=== PATIENT | female | born 1980 | race Caucasian/White ===

== ENCOUNTER → 2019-04-23 07:24 | Outpatient (CLI) | payer OTHER, SELFPAY ==
[2019-04-23 09:34] LABS: Free T3, Triiodothyronine Free 4.31 pg/mL (2.77-5.27); Free T4, Direct Thyroxine 0.87 ng/dL (0.78-2.19)
[2019-04-23 09:38] LABS: Progesterone, Total 8.79 ng/mL
[2019-04-23 09:48] LABS: Thyroid Stimulating Hormone 0.02 uIU/mL (0.47-4.68)
[2019-04-27 10:40] LABS: Testosterone Free 3.3 pg/mL (0.1-6.4); Testosterone Total 33 ng/dL (2-45)
== END ==
PROVIDERS: Visit Provider Naturopath
DX: E03.9 Hypothyroidism, unspecified (principal); N92.6 Irregular menstruation, unspecified; R53.82 Chronic fatigue, unspecified
CPT/HCPCS: 36415; 82542; 84144; 84402; 84403; 84439; 84443; 84481

== ENCOUNTER → 2019-06-12 16:59 | Outpatient (CLI) | payer OTHER, SELFPAY ==
--- NOTE | 2019-06-12 | DI.MG.S_ITS ---
BILATERAL DIGITAL SCREENING MAMMOGRAM 3D/2D WITH CAD: 06/12/2019 CLINICAL: Routine screening. Baseline exam. Baseline exam. No prior exams were available for comparison. The tissue of both breasts is heterogeneously dense. This may lower the sensitivity of mammography. Current study was also evaluated with a Computer Aided Detection (CAD) system. No significant masses, calcifications, or other findings are seen in either breast. IMPRESSION: NEGATIVE There is no mammographic evidence of malignancy. A 1 year screening mammogram is recommended. This exam was interpreted at Station ID: [id number]. NOTE: For mammograms, a report in lay terms will be sent to the patient. Approximately 15% of breast malignancies will not be visualized mammographically. In the management of a palpable breast mass, a negative mammogram must not discourage biopsy of a clinically suspicious lesion. Electronically Signed By: Severiano Watson M.D. [facility] [place]06/14/2019 07:34:42 letter sent: Normal Exam ACR BI-RADS Category 1: Negative [id number]
== END ==
PROVIDERS: PCP Family Medicine; Referring Provider Family Medicine; Visit Provider Family Medicine
DX: Z12.31 Encounter for screening mammogram for malignant neoplasm of breast (principal)
CPT/HCPCS: 77063; 77067

== ENCOUNTER → 2019-08-31 13:54 | Outpatient (CLI) | payer OTHER, SELFPAY ==
[2019-08-31 15:50] LABS: Free T3, Triiodothyronine Free 3.89 pg/mL (2.77-5.27); Free T4, Direct Thyroxine 1.15 ng/dL (0.78-2.19); T4 Total Thyroxine 8.92 ug/dL (5.5-11.0)
[2019-08-31 16:03] LABS: Thyroid Stimulating Hormone < 0.02 uIU/mL (0.47-4.68)
[2019-09-01 16:07] LABS: Triiodothyronine T3 Total 123 ng/dL (71-180)
[2019-09-03 11:03] LABS: Estrogen 450 pg/mL (.)
[2019-09-04 10:35] LABS: Percent Free Testosterone 0.71 % (0.50-2.80); Testosterone Free 0.16 ng/dL (0.10-0.85)
== END ==
PROVIDERS: PCP Family Medicine; Referring Provider Naturopath; Visit Provider Naturopath
DX: E03.9 Hypothyroidism, unspecified (principal); N92.6 Irregular menstruation, unspecified; R53.82 Chronic fatigue, unspecified
CPT/HCPCS: 36415; 82542; 82670; 82672; 82677; 82679; 84144; 84402; 84403; 84436; 84439; 84443; 84480; 84481; 84999